=== PATIENT | female | born 2000 | race Caucasian/White ===

== ENCOUNTER → 2021-07-28 | Outpatient (CLI) | payer BC | LOC: MC.RAD 07:00 | DX: N63.20 Unspecified lump in the left breast, unspecified quadrant (principal) ==

== ENCOUNTER → 2022-02-03 | Outpatient (CLI) | payer BC | LOC: MC.RAD 08:36 | DX: N63.21 Unspecified lump in the left breast, upper outer quadrant (principal) ==